=== PATIENT | female | born 1950 | race Caucasian/White ===

== ENCOUNTER 2018-07-12 17:01 | Emergency (ER) | payer OTHER ==
[~2018-07-12 17:01] MED LIST: ALBU18 IN; ALPR0.5T PO; ATO40T PO; BENA40TA7 PO; BUME2TAB3 PO; DILT-9 PO; FER325T PO; FLUT250M2 IN; FLUT50SP13; GABA300C10 PO; INDO50CA82 PO; MORP30TA PO; MULTTAB61 PO; OXYC10TA44 PO; POTA20TA53 PO; RANI-226 PO; SERT-160 PO; TRAZ50TA2 PO
[2018-07-12] MEDS ORDERED: IBUPROFEN 800 MG TAB PO ONE (19:15)
[2018-07-12] MEDS ORDERED: HYDROcodone-ACET 10/325MG TAB PO ONE (19:15)
[2018-07-12 20:16] VITALS: BP 189/99
== END 2018-07-12 21:02 | disposition home or self-care (01) ==
LOC: EDUNIT# 17:01 → EDBD 17:01 → ER 17:01
DX: M62.838 Other muscle spasm (principal); M43.6 Torticollis; G89.29 Other chronic pain; R51 Headache; I10 Essential (primary) hypertension; Z90.710 Acquired absence of both cervix and uterus; Z88.1 Allergy status to other antibiotic agents; Z91.040 Latex allergy status; Z88.8 Allergy status to other drugs, medicaments and biological substances; V49.40XA Driver injured in collision with unspecified motor vehicles in traffic accident, initial encounter; Y92.488 Other paved roadways as the place of occurrence of the external cause; Y93.89 Activity, other specified; Y99.8 Other external cause status
CPT/HCPCS: 70450; 71045; 72125; 74018

== ENCOUNTER 2018-08-11 15:22 | Emergency (ER) | payer OTHER ==
[~2018-08-11] VITALS: Ht 165.1 cm; Wt 68.0 kg
[2018-08-11 17:09] LABS: Basophils # (auto) 0 uL; Eosinophils # (auto) 0 uL; Lymphocytes # (auto) 0.6 uL; Monocytes # (auto) 0.4 uL; Potassium 3.2 mmol/L (3.5-5.1); White Blood Cell 6.2 10^3/uL (4.4-10.8)
[2018-08-11 17:14] LABS: Basophils % (auto) 0.1 % (0.0-2.0); Hematocrit 39.3 % (36.0-46.0); Hemoglobin 13.3 g/dL (12.2-16.2); Lymphocytes % (auto) 9.7 % (10.0-50.0); Mean Corpuscular Hemoglobin 30.3 pg (28.0-32.0); Mean Corpuscular Hgb Conc. 33.9 g/dL (32.0-36.0); Mean Corpuscular Volume 89.5 fL (80.0-100.0); Neutrophils # (auto) 5.2 uL; Neutrophils % (auto) 83.2 % (37.0-80.0); Nucleated Red Blood Cells % 0.1 %; Platelet Count (auto) 426 10^3/uL (140-450); Red Blood Cells 4.39 10^6/uL (4.0-5.20); Red Cell Distribution Width 13.5 % (11.8-14.3)
[2018-08-11 17:15] LABS: Albumin 2.9 g/dL (3.4-5.0); Bilirubin, Total 0.6 mg/dL (0.2-1.0); Calcium 9.6 mg/dL (8.5-10.1); Magnesium 1.7 mg/dL (1.6-2.6); Total Protein 8.3 g/dL (6.4-8.2)
[2018-08-11 19:01] VITALS: BP 179/93
== END 2018-08-12 07:00 | disposition left against medical advice (07) ==
LOC: EDBD 15:22 → ER 15:24
DX: R53.1 Weakness (principal); R11.2 Nausea with vomiting, unspecified; Z53.21 Procedure and treatment not carried out due to patient leaving prior to being seen by health care provider
CPT/HCPCS: 36415; 80053; 83735; 84484; 85025; 93005

== ENCOUNTER 2024-01-02 16:45 | Inpatient (IN) | payer OTHER ==
[~2024-01-02] VITALS: Ht 152.4 cm; Wt 82.6 kg
[~2024-01-02 16:45] MED LIST changes: -ATO40T PO; +ATOR-507 PO; -BENA40TA7 PO; +BENA40TA71 PO; -BUME2TAB3 PO; +BUME2TAB5 PO; -DILT-9 PO; +DILT240C35 PO; +GABA-1250 PO; -GABA300C10 PO; +MULT-1018 PO; -MULTTAB61 PO; +POTA-220 PO; -POTA20TA53 PO; +TRAZ-227 PO; -TRAZ50TA2 PO
[2024-01-02 19:27] LABS: Basophils # (auto) 0 10 ^3/uL (0-0.2); Basophils % (auto) 0.2 % (0.0-2.0); Eosinophils # (auto) 0.1 10 ^3/uL (0-0.8); Eosinophils % (auto) 0.7 % (0.0-7.0); Hematocrit 40.6 % (36.0-46.0); Hemoglobin 13.7 g/dL (12.2-16.2); Lymphocytes % (auto) 14.9 % (10.0-50.0); Mean Corpuscular Hemoglobin 29.9 pg (28.0-32.0); Mean Corpuscular Hgb Conc. 33.7 g/dL (32.0-36.0); Mean Corpuscular Volume 88.5 fL (80.0-100.0); Monocytes # (auto) 0.5 10 ^3/uL (0-1.3); Monocytes % (auto) 6.6 % (0.0-12.0); Neutrophils # (auto) 5.3 10 ^3/uL (1.6-8.6); Neutrophils % (auto) 77.6 % (37.0-80.0); Nucleated Red Blood Cells % 0.1 %; Red Blood Cells 4.59 10^6/uL (4.0-5.20); Red Cell Distribution Width 13.1 % (11.8-14.3); White Blood Cell 6.9 10^3/uL (4.4-10.8)
[2024-01-02 19:45] LABS: Alanine Aminotransferase 15 U/L (7-40); Albumin 4.8 g/dL (3.2-4.8); Alkaline Phosphatase 103 U/L (46-116); Anion Gap 9 (5-15); Aspartate Aminotransferase 15 U/L (13-40); BUN/Creatinine Ratio 9.2 (10.0-20.0); Blood Urea Nitrogen 6 mg/dL (9-23); Calcium 9.7 mg/dL (8.7-10.4); Carbon Dioxide 24 mmol/L (20-30); Chloride 103 mmol/L (98-107); Glucose 157 mg/dL (74-106); Potassium 3.7 mmol/L (3.5-5.1); Sodium 136 mmol/L (136-145)
[2024-01-02 19:46] LABS: Bilirubin, Total 0.4 mg/dL (0.2-1.0); Total Protein 7.2 g/dL (5.7-8.2)
[2024-01-02] MEDS: HYDROmorphone HCL 2 MG/ML VL/or syr IM ONE (21:17)
[2024-01-02] MEDS ORDERED: ACETAMINOPHEN 325 MG TAB PO PRN (21:30)
[2024-01-02] MEDS ORDERED: DOCUSATE SOD 100 MG CAP PO PRN (21:30)
[2024-01-02] MEDS: LACTATED RINGER'S 1,000 ML IV ONE (23:32)
[2024-01-02] MEDS: ceFAZolin 1GM/50ML 50 ML IV SCH (23:32)
[2024-01-02] MEDS: SODIUM CHLOR 0.9% PF (SALINE LOCK) 10ML VIAL/SYR IV SCH (23:33)
[2024-01-02] MEDS: HYDROcodone-ACET 5/325MG TAB PO PRN (23:49)
[2024-01-03] MEDS: hydrALAZINE HCL 20 MG/ML VL IV PRN (01:07)
[2024-01-03 01:56] VITALS: BP 153/73; PULSE 84; RESP 17; TEMP 97.3; O2SAT 94
[2024-01-03] MEDS: HYDROmorphone HCL 2 MG/ML VL/or syr IV PRN (02:55)
[2024-01-03 05:00] VITALS: BP 144/85; PULSE 87; RESP 20; TEMP 99; O2SAT 93
[2024-01-03 08:00] VITALS: PULSE 78; RESP 18; O2SAT 94
[2024-01-03] MEDS: ONDANSETRON HCL 4 MG/2 ML VIAL IV PRN (08:29)
[2024-01-03 09:00] VITALS: BP 151/87; PULSE 83; RESP 20; TEMP 98.5; O2SAT 93
[2024-01-03] MEDS: ENOXAPARIN SOD 40 MG/0.4 ML SYRINGE SC SCH (10:59)
[2024-01-03 13:05] VITALS: BP 177/85; PULSE 84; RESP 20; O2SAT 90
[2024-01-03] MEDS: dilTIAZem 120MG ER CAP PO ONE (13:10)
[2024-01-03] MEDS: BENAZEPRIL HCL 10 MG TAB PO ONE (13:10)
[2024-01-03] MEDS: GABAPENTIN 400 MG CAP PO ONE (13:11)
[2024-01-03] MEDS: OXYCODONE W/ ACETAMINOPHEN 5/325MG TABLET PO ONE (13:12)
[2024-01-03 15:19] VITALS: BP 177/89; PULSE 84; TEMP 36.9
== END 2024-01-03 16:00 | disposition home or self-care (01) | DRG 918 ==
LOC: ER 16:45 → EAST 21:32 → OVERFLOW 21:32 → EAST 01-03 01:02
PROVIDERS: ADMIT Internal Medicine; ATTEND Internal Medicine Geriatric Medicine
DX: T63.311A Toxic effect of venom of black widow spider, accidental (unintentional), initial encounter (principal); L03.116 Cellulitis of left lower limb; G89.29 Other chronic pain; I10 Essential (primary) hypertension; G62.9 Polyneuropathy, unspecified; Y92.89 Other specified places as the place of occurrence of the external cause; Z82.49 Family history of ischemic heart disease and other diseases of the circulatory system; Z88.8 Allergy status to other drugs, medicaments and biological substances; Z91.040 Latex allergy status; Z90.710 Acquired absence of both cervix and uterus; Z88.0 Allergy status to penicillin; Y92.009 Unspecified place in unspecified non-institutional (private) residence as the place of occurrence of the external cause
CPT/HCPCS: 36415; 80053; 85025; 87040; 96372; G0378; J2405